=== PATIENT | male | born 1945 | race American Indian/Alaskan Native ===

== ENCOUNTER 2019-02-06 00:05 | Emergency (ER) | payer MEDICARE ==
[2019-02-06] MEDS ORDERED: GEODON IM ONE (00:41)
[2019-02-06 02:10] LABS: Basophils % (Auto) 0.7 % (0.0-1.8); Eosinophils # (Auto) 0.1 K/mm3 (0.0-0.4); Eosinophils % (Auto) 3.5 % (0.0-4.3); Hematocrit 35.3 % (35.5-45.6); Hemoglobin 12.6 gm/dl (11.8-15.2); Lymphocytes # (Auto) 1.1 K/mm3 (1.2-5.4); Lymphocytes % (Auto) 31.8 % (13.4-35.0); Mean Corpuscular HGB Conc 36 % (32-34); Mean Corpuscular Volume 97 fl (84-94); Monocytes # (Auto) 0.4 K/mm3 (0.0-0.8); Monocytes % (Auto) 11.1 % (0.0-7.3); Platelet Count 174 K/mm3 (140-440); Red Blood Count 3.65 M/mm3 (3.65-5.03); Red Cell Distribution Width 13.8 % (13.2-15.2)
[2019-02-06 02:20] LABS: Bilirubin,Urine NEG (Negative); Blood,Urine NEG (Negative); Color,Urine Amber (Yellow); Mucus,Urine 3+ /HPF; RBC,Urine < 1.0 /HPF (0.0-6.0)
[2019-02-06 02:21] LABS: BUN/Creatinine Ratio 13; Blood Urea Nitrogen 15 mg/dL (9-20); Calcium 8.5 mg/dL (8.4-10.2); Hemolysis Index 4
[2019-02-06 02:27] LABS: Amphetamine Screen,Urine PRESUMPTIVE NEGATIVE; Benzodiazepines Screen,Urine PRESUMPTIVE NEGATIVE; Cannabinoid Screen,Urine PRESUMPTIVE NEGATIVE; Cocaine Screen,Urine PRESUMPTIVE NEGATIVE; Methadone Screen,Urine PRESUMPTIVE NEGATIVE; Opiate Screen,Urine PRESUMPTIVE NEGATIVE
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
[2019-02-06 13:32] VITALS: BP 135/92
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
== END 2019-02-06 16:48 | disposition home or self-care (01) ==
LOC: EDBD → ED 00:05
DX: F03.90 Unspecified dementia, unspecified severity, without behavioral disturbance, psychotic disturbance, mood disturbance, and anxiety (principal)
CPT/HCPCS: 36415; 80048; 80307; 81001; 85025; 96372; 99284; J3486; 80320; G0480

== ENCOUNTER 2019-02-24 03:04 | Emergency (ER) | payer MEDICARE ==
[2019-02-24 03:38] VITALS: BP 122/79
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
[2019-02-24 07:02] LABS: Basophils % (Auto) 0.7 % (0.0-1.8); Eosinophils # (Auto) 0.1 K/mm3 (0.0-0.4); Eosinophils % (Auto) 2.7 % (0.0-4.3); Hematocrit 39.9 % (35.5-45.6); Hemoglobin 13.8 gm/dl (11.8-15.2); Lymphocytes # (Auto) 0.9 K/mm3 (1.2-5.4); Lymphocytes % (Auto) 28.2 % (13.4-35.0); Mean Corpuscular HGB Conc 35 % (32-34); Mean Corpuscular Volume 98 fl (84-94); Monocytes # (Auto) 0.4 K/mm3 (0.0-0.8); Monocytes % (Auto) 12.6 % (0.0-7.3); Platelet Count 207 K/mm3 (140-440); Red Blood Count 4.08 M/mm3 (3.65-5.03); Red Cell Distribution Width 13.5 % (13.2-15.2)
[2019-02-24 08:11] LABS: Alanine Aminotransferase 14 units/L (7-56); Albumin 3.8 g/dL (3.9-5); BUN/Creatinine Ratio 13; Blood Urea Nitrogen 16 mg/dL (9-20); Calcium 9.5 mg/dL (8.4-10.2); Hemolysis Index 8
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
== END 2019-02-24 13:36 | disposition home or self-care (01) ==
LOC: EEVIPCON 03:04 → ED 03:04
DX: T76.11XA Adult physical abuse, suspected, initial encounter (principal); F03.90 Unspecified dementia, unspecified severity, without behavioral disturbance, psychotic disturbance, mood disturbance, and anxiety; Z87.891 Personal history of nicotine dependence; Y09 Assault by unspecified means
CPT/HCPCS: 36415; 80053; 80320; 84443; 85025; 99283; G0480

== ENCOUNTER 2019-04-19 10:29 | Emergency (ER) | payer MEDICARE ==
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
[2019-04-19] MEDS ORDERED: BOOSTRIX IM ONE (13:16)
[2019-04-19] MEDS ORDERED: XYLOCAINE 2%/EPI 1:100,000 INFILTRATI ONE (13:16)
[2019-04-19] MEDS ORDERED: NACL 0.9% IR ONE (13:16)
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
[2019-04-19 15:09] LABS: BUN/Creatinine Ratio 25; Blood Urea Nitrogen 33 mg/dL (9-20); Calcium 9.1 mg/dL (8.4-10.2); Hemolysis Index 8
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
[2019-04-19 18:38] VITALS: BP 149/67
== END 2019-04-19 19:00 | disposition home or self-care (01) ==
LOC: ED 10:29
DX: S01.01XA Laceration without foreign body of scalp, initial encounter (principal); Z79.899 Other long term (current) drug therapy; W50.0XXA Accidental hit or strike by another person, initial encounter; Y93.89 Activity, other specified; Y92.098 Other place in other non-institutional residence as the place of occurrence of the external cause; Y99.8 Other external cause status
CPT/HCPCS: 36415; 70450; 80048; 80320; 82550; 84443; 90471; 90715; G0480

== ENCOUNTER 2019-04-20 11:25 | Emergency (ER) | payer MEDICARE ==
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
[2019-04-20 12:24] LABS: Bacteria,Urine 1+ /HPF (Negative); Mucus,Urine FEW /HPF
--- NOTE | 2019-04-20 12:40 | XRay Report ---
CHEST 1 VIEW INDICATION: AMS. COMPARISON: None. FINDINGS: Support devices: None. Heart: Normal. Lungs/Pleura: No acute pulmonary or pleural findings. IMPRESSION: 1. No acute findings. Signer Name: Phillip Fortune MD Signed: 04/20/2019 12:36 PM Workstation Name: [id number]
[2019-04-20 12:41] LABS: Bilirubin,Urine NEG (Negative); Blood,Urine SM (Negative); Color,Urine Yellow (Yellow); Urobilinogen,Urine < 2.0 mg/dL (<2.0)
[2019-04-20 12:48] LABS: Amphetamine Screen,Urine PRESUMPTIVE NEGATIVE; Benzodiazepines Screen,Urine PRESUMPTIVE NEGATIVE; Cannabinoid Screen,Urine PRESUMPTIVE NEGATIVE; Cocaine Screen,Urine PRESUMPTIVE NEGATIVE; Methadone Screen,Urine PRESUMPTIVE NEGATIVE; Opiate Screen,Urine PRESUMPTIVE NEGATIVE
--- NOTE | 2019-04-20 14:29 | Cat Scan Report ---
CT HEAD WITHOUT CONTRAST HISTORY: Altered mental status. TECHNIQUE: Axial imaging performed from the skull apex through the skull base without the use of con trast. All CT scans at this location are performed using CT dose reduction for ALARA by means of aut omated exposure control. COMPARISON: 04/19/2019 FINDINGS: Comment: Nonstandard patient positioning. Parenchyma: No acute intracranial hemorrhage or parenchymal abnormality.. Mild hypoattenuation thro ughout the white matter is noted and consistent with chronic microvascular ischemic disease. Ventricles: There is mild diffuse brain atrophy with commensurate ventricular enlargement which is l ikely age appropriate. Previously described small late subacute to chronic right subdural collection is unchanged. Soft tissues: Soft tissues including the orbits appear normal. Bones: No acute osseous abnormality. Sinuses: Sinuses and mastoid air cells are clear. IMPRESSION: No acute abnormality. Volume loss and chronic white matter changes. Very small right subd ural collection. No acute change since 04/19/2019. Signer Name: Darrin Cadena Jr, MD Signed: 04/20/2019 2:25 PM Workstation Name: [id number]
[2019-04-20 14:36] LABS: Basophils % (Auto) 0.2 % (0.0-1.8); Hematocrit 33.5 % (35.5-45.6); Hemoglobin 11.5 gm/dl (11.8-15.2); Lymphocytes # (Auto) 0.3 K/mm3 (1.2-5.4); Lymphocytes % (Auto) 7.5 % (13.4-35.0); Mean Corpuscular HGB Conc 34 % (32-34); Mean Corpuscular Volume 99 fl (84-94); Monocytes # (Auto) 0.3 K/mm3 (0.0-0.8); Monocytes % (Auto) 8.2 % (0.0-7.3); Platelet Count 151 K/mm3 (140-440); Red Cell Distribution Width 14.8 % (13.2-15.2)
[2019-04-20 14:46] LABS: INR 1.02 (0.87-1.13)
[2019-04-20 14:47] LABS: Partial Thromboplastin Time 25.3 Sec. (24.2-36.6)
[2019-04-20 14:54] LABS: Alanine Aminotransferase 10 units/L (7-56); BUN/Creatinine Ratio 24; Bilirubin,Direct < 0.2 mg/dL (0-0.2); Blood Urea Nitrogen 40 mg/dL (9-20); Hemolysis Index 15
[2019-04-20] MEDS ORDERED: NACL 0.9% 1000 ML 1,000 ML IV ONE (14:57)
[2019-04-20 23:17] VITALS: BP 169/67
== END 2019-04-20 23:17 | disposition other institution (70) ==
LOC: ED 11:25
DX: E86.0 Dehydration (principal); E87.0 Hyperosmolality and hypernatremia; F03.90 Unspecified dementia, unspecified severity, without behavioral disturbance, psychotic disturbance, mood disturbance, and anxiety; N17.9 Acute kidney failure, unspecified; Z79.899 Other long term (current) drug therapy
CPT/HCPCS: 36415; 70450; 71045; 80048; 80076; 80307; 81001; 83690; 84484; 85025; 85610; 85730; 93005; 93010; 96360; 99285; J7030; 80320; G0480